=== PATIENT | male | born 2000 ===

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

== ENCOUNTER 2023-11-02 01:27 | Emergency (ER) | payer SELFPAY ==
[~2023-11-02] VITALS: Ht 180.3 cm; Wt 68.2 kg
[2023-11-02 01:40] VITALS: BP 118/77; TEMP 98.5
[2023-11-02 03:09] LABS: COLLECTION METHOD CLEAN CATCH
[2023-11-02 03:24] LABS: PH 5.5 (5.0-8.5); URINE APPEARANCE CLEAR (CLEAR/HAZY); URINE BLOOD NEGATIVE (NEGATIVE); URINE COLOR YELLOW (YELLOW); URINE GLUCOSE NEGATIVE (NEGATIVE); URINE KETONE TRACE (NEGATIVE); URINE NITRATE NEGATIVE (NEGATIVE); URINE PROTEIN(semi-quant) NEGATIVE (NEGATIVE)
[2023-11-02 03:33] LABS: TRICYCLIC ANTIDEPRESS URINE NEGATIVE (NEGATIVE)
[2023-11-02 04:25] VITALS: PULSE 77
== END 2023-11-02 04:26 | disposition home or self-care (01) ==
LOC: COL.ER 01:27
PROVIDERS: Emergency Medicine
DX: F10.129 Alcohol abuse with intoxication, unspecified (principal); Y90.6 Blood alcohol level of 120-199 mg/100 ml